=== PATIENT | male | born 1950 | race Caucasian/White ===

== ENCOUNTER 2025-04-08 11:29 | Outpatient (CLI) | payer OTHER ==
--- NOTE | 2025-04-08 14:10 | RADIOLOGY REPORT ---
CLINICAL INFORMATION: Pain in the left foot. Left ankle effusion. Heterotopic ossification. TECHNIQUE: Axial CT images of the left ankle were obtained without IV contrast. Coronal and sagittal reformatted images were obtained, reviewed, and stored. All CT scans at this medical facility are p erformed using dose modulation techniques as appropriate to a performed exam including the following: Automated exposure control was utilized; adjustment of the MA and/or KV according to patient size; a nd use of iterative reconstruction technique. CTDIvol = 14.5 mGy DLP = 373.35 mGy-cm COMPARISON: None FINDINGS: No acute fracture. 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 There is a focal round lucency adjacent to the anterior aspect of the talar component of the prosthesis measuring up t o 6.5 cm, abutting the prosthesis, with mild adjacent sclerosis, appears chronic, likely a cyst. Does not have the typical appearance for prosthesis loosening, although correlation with clinical finding s and prior radiographs recommended. No other lucency adjacent to the tibial or talar components of t he prosthesis. There are chronic appearing ossific densities adjacent to the inferior aspect of the m edial malleolus and medial aspect of the talus, with the largest measuring up to 0.7 cm. There is als o spurring of the inferior aspect of the medial malleolus as well as the inferior aspect of the later al malleolus. There is partial osseous fusion between the anterior aspect of the lateral malleolus an d distal tibia. Mild spurring of the calcaneal tuberosity near the Achilles tendon insertion. Minimal spurring of the plantar aspect of the calcaneus at the attachment site of the plantar fascia. 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 Mild soft tissue edema adjacent to th e medial and lateral aspects of the ankle. 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 IMPRESSION: 1. Postsurgical changes of total ankle replacement. There is a chronic appearing lucency adjacent to the anterior aspect of the talar component of the prosthesis, likely a cyst. This would not be typica l appearance for prosthesis loosening, although correlation with clinical findings and prior imaging recommended. 2. Spurring of the inferior aspects of the medial and lateral malleoli. 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 3. Additional findings as detailed above.
== END 2025-04-08 23:59 | disposition home or self-care (01) ==
LOC: 64 CT 11:29
PROVIDERS: ATTEND Podiatrist Foot & Ankle Surgery
DX: M25.472 Effusion, left ankle (principal); M89.8X9 Other specified disorders of bone, unspecified site; M25.872 Other specified joint disorders, left ankle and foot; Z96.662 Presence of left artificial ankle joint; M77.52 Other enthesopathy of left foot and ankle
CPT/HCPCS: 73700